=== PATIENT | female | born 1995 | race Caucasian/White ===

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

== ENCOUNTER 2017-12-02 18:01 | Emergency (ER) | payer BC ==
[~2017-12-02] VITALS: Ht 152.4 cm; Wt 62.1 kg
[2017-12-02 18:09] VITALS: TEMP 98.4
[2017-12-02 19:03] LABS: BASO # 0.1 (0.0-0.2); BASO % 0.8 % (0.0-2.0); EOS # 0.1 (0.0-0.7); EOS % 1.3 % (0-4.0); GRAN # 5.6 (1.4-6.5); GRAN % 72.2 % (42.2-75.2); HEMATOCRIT 40.2 % (35.0-45.0); HEMOGLOBIN 13.2 g/dl (12.0-15.0); LYMPH # 1.6 (1.2-3.4); LYMPH % 20.5 % (20.0-51.0); MEAN CELL VOLUME 83 fl (80.0-95.0); MEAN CORPUSCULAR HEMOGLOBIN 27 pg (26.0-32.0); MEAN CORPUSCULAR HGB CONC 33 g/dl (33.0-37.0); MEAN PLATELET VOLUME 9.3 fl (7.4-10.4); MONO # 0.4 (0.1-0.6); MONO % 4.8 % (1.7-9.3); PLATELET COUNT 379 K/mm3 (130-400); RED BLOOD COUNT 4.82 M/mm3 (4.10-5.30); REDCELL DISTRIBUTION WIDTH-CV 14.2 % (11.5-14.5)
[2017-12-02 19:12] LABS: ACETAMINOPHEN 11 ug/mL (10-30); ALANINE AMINOTRANSFERASE 24 U/L (9-52); ALBUMIN 4.1 gm/dL (3.5-5.0); ALKALINE PHOSPHATASE 78 U/L (50-136); ANION GAP 9 mmol/L (7-16); AST,SGOT 27 U/L (15-37); BILIRUBIN,TOTAL 0.6 mg/dL (0.0-1.0); BLOOD UREA NITROGEN 10 mg/dL (7-17); CALCIUM 9.4 mg/dL (8.4-10.2); CARBON DIOXIDE 26 mmol/L (22-30); CHLORIDE 102 mmol/L (98-107); CREATININE, serum 0.75 mg/dL (0.52-1.25); GLUCOSE 111 mg/dL (74-106); POTASSIUM 3.9 mmol/L (3.4-5.0); SODIUM 137 mmol/L (137-145); TOTAL PROTEIN 7.7 gm/dL (6.4-8.2)
[2017-12-02 19:19] LABS: ALCOHOL(ethanol),MEDICAL < 10 mg/dL; SALICYLATE < 1.0 mg/dL
[2017-12-02 20:26] LABS: COLLECTION METHOD CLEAN CATCH
[2017-12-02 20:36] LABS: PH 7 (5-8); SQUAMOUS EPITHELIAL 0-2 /hpf; URINE APPEARANCE Clear; URINE BACTERIA None Seen /hpf; URINE BILIRUBIN Negative (NEGATIVE); URINE BLOOD 2+ (NEGATIVE); URINE COLOR Straw; URINE GLUCOSE Negative (NEGATIVE); URINE KETONE Negative (NEGATIVE); URINE LEUKOCYTE ESTERASE Negative (NEGATIVE); URINE NITRATE Negative (NEGATIVE); URINE PROTEIN(semi-quant) Negative (NEGATIVE); URINE RBC 0-2 /hpf; URINE UROBILINOGEN Negative (NEGATIVE)
[2017-12-02 20:45] LABS: TRICYCLIC ANTIDEPRESS URINE NEGATIVE
[2017-12-02 23:07] VITALS: BP 100/60
[2017-12-03 00:36] VITALS: PULSE 86
== END 2017-12-03 00:36 | disposition home or self-care (01) ==
LOC: COL.ER 18:01
PROVIDERS: Emergency Medicine
DX: T39.1X2A Poisoning by 4-Aminophenol derivatives, intentional self-harm, initial encounter (principal); T39.312A Poisoning by propionic acid derivatives, intentional self-harm, initial encounter; F17.210 Nicotine dependence, cigarettes, uncomplicated

== ENCOUNTER 2019-03-30 11:07 | Observation (INO) | payer BC ==
[~2019-03-30] VITALS: Ht 152.4 cm; Wt 61.4 kg
[2019-03-30] VITALS (7 sets, daily range): BP systolic 99–112; BP diastolic 54–64; PULSE 71–118; TEMP 98.1–98.2
[2019-03-30 12:11] LABS: COLLECTION METHOD CLEAN CATCH
[2019-03-30 12:57] LABS: BASO # 0.1 (0.0-0.2); BASO % 0.4 % (0.0-2.0); EOS # 0.1 (0.0-0.7); EOS % 0.5 % (0-4.0); GRAN # 12.3 (1.4-6.5); GRAN % 83.7 % (42.2-75.2); HEMATOCRIT 41.6 % (37.0-47.0); HEMOGLOBIN 13.8 g/dl (12.5-16.0); LYMPH # 1.4 (1.2-3.4); LYMPH % 9.7 % (20.0-51.0); MEAN CELL VOLUME 87 fl (80.0-100.0); MEAN CORPUSCULAR HEMOGLOBIN 29 pg (27.0-31.0); MEAN CORPUSCULAR HGB CONC 33 g/dl (33.0-37.0); MEAN PLATELET VOLUME 9.5 fl (7.4-10.4); MONO # 0.8 (0.1-0.6); MONO % 5.3 % (1.7-9.3); PLATELET COUNT 312 K/mm3 (130-400); RED BLOOD COUNT 4.81 M/mm3 (4.10-5.30); REDCELL DISTRIBUTION WIDTH-CV 12.8 % (11.5-14.5)
[2019-03-30 13:05] LABS: MUCOUS Present /lpf; PH 5 (5-8); SQUAMOUS EPITHELIAL 0-2 /hpf; URINE APPEARANCE Cloudy; URINE BACTERIA None Seen /hpf; URINE BILIRUBIN Negative (NEGATIVE); URINE BLOOD Negative (NEGATIVE); URINE COLOR Yellow; URINE GLUCOSE Negative (NEGATIVE); URINE KETONE 1+ (NEGATIVE); URINE LEUKOCYTE ESTERASE Negative (NEGATIVE); URINE NITRATE Negative (NEGATIVE); URINE PROTEIN(semi-quant) Negative (NEGATIVE); URINE RBC None Seen /hpf; URINE UROBILINOGEN Negative (NEGATIVE)
[2019-03-30 13:12] LABS: ALBUMIN 4.3 gm/dL (3.5-5.0); BILIRUBIN,TOTAL 0.8 mg/dL (0.0-1.0); C-REACTIVE PROTEIN 1.8 mg/dL (0.0-0.9); CALCIUM 9.1 mg/dL (8.4-10.2); CREATININE, serum 0.65 (0.52-1.25); POTASSIUM 4.4 mmol/L (3.4-5.0); TOTAL PROTEIN 7.3 gm/dL (6.4-8.2)
--- NOTE | 2019-03-30 18:30 | NUR ---
Patient got back from surgery at 1750. She has been sleepy since getting back. Denies pain or nausea. She is more awake now, she has visitors at bedside. She is eat supper. No other changes at this time. Call light within reach.
--- NOTE | 2019-03-30 19:30 | NUR ---
Pt. sitting up in bed with guests at bedside. Pt. is A&OX3, assessment complete. INT to rt. ac patent. Pt. tolerating PO. Vital signs stable. Abd. lap sites x3, CDI. Umbelical site had some bleeding, bandaid changed. Pt. denies pain or other needs, call light within reach.
[2019-03-31] VITALS: BP 101/64; PULSE 97; TEMP 98.4
[2019-03-31 04:00] VITALS: BP 96/45; PULSE 94; TEMP 98.4
[2019-03-31 07:55] VITALS: BP 101/54; PULSE 89; TEMP 98.3
--- NOTE | 2019-03-31 10:30 | NUR ---
Patient is discharging home. Minimal complaints of pain, no complaints of nausea. Patient is discharging home. Her father is here with her and will be taking her home. Discharge instructions discussed with patient. No questions verbalized. Explained when her follow up appointment is. No prescriptions for patient to pharmacy picking tech. Copies of discharge instructions sent with patient. Patient walked out with Lilliam YEE.
== END 2019-03-31 10:30 | disposition home or self-care (01) ==
LOC: COL.ER 11:07 → SURG 14:42
PROVIDERS: Physician Assistant; ADMIT Surgery
DX: K35.80 Unspecified acute appendicitis (principal)
CPT/HCPCS: G0378; J0330; J1100; J1885; J2270; J2405; J2543; J2704; J2765; J3010; J7030; J7120; Q9967